=== PATIENT | male | born 1965 | race Two or more races ===

== ENCOUNTER 2021-08-30 10:10 | Outpatient (CLI) | payer OTHER ==
[2021-08-30] MEDS ORDERED: PROTONIX40 MG PO (13:00)
[2021-08-30] MEDS ORDERED: NORVASC5 MG PO (13:00)
[2021-08-30] MEDS ORDERED: NEXIUM40 M1 PO (13:00)
[2021-08-30] MEDS ORDERED: LIPITOR40 MG PO (13:00)
[2021-08-30] MEDS ORDERED: INTESTINEX680 M1 PO (13:01)
== END 2021-08-30 10:11 | disposition home or self-care (01) ==
LOC: LAB 10:10
PROVIDERS: ATTEND Colon & Rectal Surgery
DX: K57.20 Diverticulitis of large intestine with perforation and abscess without bleeding (principal); Z93.3 Colostomy status; K92.1 Melena

== ENCOUNTER 2021-08-30 11:15 | Inpatient (IN) | payer OTHER ==
[~2021-08-30] VITALS: Ht 165.1 cm; Wt 95.7 kg
[2021-08-30] MEDS ORDERED: NORVASC5 MG PO (13:00)
[2021-08-30] MEDS ORDERED: PROTONIX40 MG PO (13:00)
[2021-08-30] MEDS ORDERED: NEXIUM40 M1 PO (13:00)
[2021-08-30] MEDS ORDERED: LIPITOR40 MG PO (13:00)
[2021-08-30] MEDS ORDERED: INTESTINEX680 M1 PO (13:01)
[2021-09-12] MEDS ORDERED: PHENTERMINE H37.5 M1 (08:21)
[2021-09-12] MEDS ORDERED: FISH OIL 1,0001 EAC4 (08:21)
[2021-09-12] MEDS ORDERED: ZOLPIDEM TARTRA10 MG (08:21)
[2021-09-12] MEDS ORDERED: FAMOTIDINE20 MG (08:22)
[2021-09-12] MEDS ORDERED: FENOFIBRATE145 MG (08:22)
== END 2021-09-14 18:03 | disposition home or self-care (01) | DRG 330 ==
LOC: EDUNIT# 11:15 → O/R 09-11 06:10 → SURH 09-11 11:15
PROVIDERS: ADMIT Colon & Rectal Surgery; ATTEND Colon & Rectal Surgery
PROC: 0DBP4ZZ Excision of Rectum, Percutaneous Endoscopic Approach (ICD-10-PCS; 2021-09-11)
PROC: 0WQF4ZZ Repair Abdominal Wall, Percutaneous Endoscopic Approach (ICD-10-PCS; 2021-09-11)
PROC: 0DBE4ZZ Excision of Large Intestine, Percutaneous Endoscopic Approach (ICD-10-PCS; 2021-09-11)
PROC: 3E0F7SF Introduction of Other Gas into Respiratory Tract, Via Natural or Artificial Opening (ICD-10-PCS; 2021-09-11)
PROC: 0DTN4ZZ Resection of Sigmoid Colon, Percutaneous Endoscopic Approach (ICD-10-PCS; principal; 2021-09-11 11:30)
DX: K57.30 Diverticulosis of large intestine without perforation or abscess without bleeding (principal); K92.1 Melena; K43.2 Incisional hernia without obstruction or gangrene; K66.0 Peritoneal adhesions (postprocedural) (postinfection); I11.9 Hypertensive heart disease without heart failure; R73.01 Impaired fasting glucose; R06.81 Apnea, not elsewhere classified; Z43.3 Encounter for attention to colostomy

== ENCOUNTER 2022-08-02 14:33 | Emergency (ER) | payer OTHER ==
[~2022-08-02] VITALS: Ht 165.1 cm; Wt 96.6 kg
[~2022-08-02 14:33] MED LIST: FAMOTIDINE20 MG; FENOFIBRATE145 MG; FISH OIL 1,0001 EAC4; INTESTINEX680 M1 PO; LIPITOR40 MG PO; NEXIUM40 M1 PO; NORVASC5 MG PO; PHENTERMINE H37.5 M1; PROTONIX40 MG PO; ZOLPIDEM TARTRA10 MG
== END 2022-08-02 21:21 | disposition home or self-care (01) ==
LOC: ER 14:33
DX: R10.9 Unspecified abdominal pain (principal); Z93.3 Colostomy status; K57.92 Diverticulitis of intestine, part unspecified, without perforation or abscess without bleeding; I10 Essential (primary) hypertension; E78.00 Pure hypercholesterolemia, unspecified

== ENCOUNTER 2022-10-12 17:12 | Emergency (ER) | payer OTHER ==
[~2022-10-12] VITALS: Ht 165.1 cm; Wt 99.8 kg
== END 2022-10-12 22:41 | disposition home or self-care (01) ==
LOC: ER 17:12
PROVIDERS: General Practice
DX: N30.90 Cystitis, unspecified without hematuria (principal); R10.9 Unspecified abdominal pain; R10.2 Pelvic and perineal pain; I10 Essential (primary) hypertension
CPT/HCPCS: 36415; 74177; Q9965